=== PATIENT | male | born 1995 | race Hispanic/Latino ===

== ENCOUNTER 2018-04-01 18:15 | Emergency (ER) | payer BC ==
[2018-04-01 19:45] VITALS: RESP 18
--- NOTE | 2018-04-01 21:02 | ED PDOC ---
HPI: General Adult Time Seen by Provider: 04/01/18 20:29 Chief Complaint (Nursing): Anxiety Chief Complaint (Provider): Chest pain, anxiety History Per: Patient History/Exam Limitations: no limitations Onset/Duration Of Symptoms: Hrs Have you had recent travel within the past 21 days to any of the following countries: [place], [place], [employer] or [place]?: No Current Symptoms Are (Timing): Better Additional History Per: Patient Additional Complaint(s): 22yo male with history of anxiety, ADD, presents to ER for evaluation of chest tightness and left arm pain, present since 4PM today. Patient states recently he has been stressed and anxious; states he was studying for an exam tomorrow while the symptoms started. Patient reports he used to be on SSRI's in the past but now only takes his ADD medication. He reports he has not had an anxiety attack "in years." Patient states the chest tightness has resolved but he still has arm discomfort, prompting his ER visit. He denies any trauma, injury, fever , chills, shortness of breath, and offers no other medical complaints. Also denies SI, HI, history of suicide attempts or current plan. PMD: None Past Medical History Reviewed: Historical Data, Nursing Documentation, Vital Signs Vital Signs: Last Vital Signs Temp 98 F 04/01/18 22:47 Pulse 56 L 04/01/18 22:47 Resp 18 04/01/18 22:47 BP 137/74 04/01/18 22:47 Pulse Ox 99 04/01/18 22:47 - Medical History PMH: Anxiety Other PMH: ADD - Surgical History Surgical History: No Surg Hx - Family History Family History: States: No Known Family Hx - Living Arrangements Living Arrangements: With Friends/Others ([employer]) - Social History Current smoker - smoking cessation education provided: No Alcohol: Occasional Drugs: Cannabis (occasional) - Allergies Allergies/Adverse Reactions: Allergies Allergy/AdvReac Type Severity Reaction Status Date / Time No Known Allergies Allergy Verified 04/01/18 19:45 Review of Systems ROS Statement: Except As Marked, All Systems Reviewed And Found Negative Constitutional: Negative for: Fever, Chills Cardiovascular: Positive for: Chest Pain Respiratory: Negative for: Shortness of Breath Musculoskeletal: Positive for: Arm Pain (left) Neurological: Negative for: Weakness, Numbness Physical Exam - Reviewed Nursing Documentation Reviewed: Yes Vital Signs Reviewed: Yes - Physical Exam Comments: GENERAL APPEARANCE: Patient is awake, alert, oriented x 3, in no acute distress. Resting comfortably, nontoxic appearing. SKIN: Warm, dry; (-) cyanosis. EYES: (-) conjunctival pallor. ENMT: Mucous membranes moist. Airway patent, (-) stridor. NECK: Supple, FROM (-) tenderness, (-) stiffness, (-) lymphadenopathy CHEST AND RESPIRATORY: (-) rash, (-) chest wall tenderness. Lungs: (-) rales , (-) rhonchi, (-) wheezes, (-) rub; breath sounds equal bilaterally. HEART AND CARDIOVASCULAR: (-) irregularity; (-) murmur, (-) gallop, (-) rub. ABDOMEN AND GI: Soft; (-) distention, (-) tenderness (-) guarding (-) CVA tenderness, (-) palpable pulsatile mass. EXTREMITIES: FROM bilateral upper extremities at all joints with (-) tenderness (-) deformity (-) overlying skin changes; (-) calf tenderness. (+) distal pulses. NEURO AND PSYCH: Mental status as above. Cranial nerves grossly intact; strength symmetric. Gait steady, speech clear. (-) facial asymmetry - ECG ECG: Positive for: Interpreted By Me, Viewed By Me ECG Rhythm: Positive for: Sinus Rhythm. Negative for: ST/T Changes Interpretation Of ECG: QTC 400 Rate: 60 O2 Sat by Pulse Oximetry: 100 (RA) Pulse Ox Interpretation: Normal Medical Decision Making Medical Decision Making: Impression: Chest pain, arm pain, likely secondary to anxiety/panic attack Plan: -- EKG -- Patient declined to speak with crisis team at this time. -- Xanax 0.25mg PO On re-evaluation, patient requesting to go home at this time and reports resolution of symptoms; denies any chest or arm discomfort at this time. On exam , patient remains AAOx3, in no acute distress. On exam, neck is supple, lungs CTA, cardiac RRR, abdomen is soft and non-tender, neuro exam shows no focal findings. VSS, stable for discharge. Diagnostic results d/w the patient in great detail. Dx of panic attack, anxiety d/w the patient. Based on history, exam and diagnostic results plan will be for discharge and outpatient follow up. Advised to follow up with primary care physician in 1-2 days without fail. Return to the emergency room at any time for any new or worsening symptoms. Patient states he fully agrees with and understands discharge instructions. States that he agrees with the plan and disposition. Verbalized and repeated discharge instructions and plan. I have given the patient opportunity to ask any additional questions. Scribe Attestation: Documented by Deann Justice acting as a scribe for LUZ Oneil. Provider Attestation: All medical record entries made by the Scribe were at my direction and personally dictated by me. I have reviewed the chart and agree that the record accurately reflects my personal performance of the history, physical exam, medical decision making, and the department course for this patient. I have also personally directed, reviewed, and agree with the discharge instructions and disposition. Disposition - Clinical Impression Clinical Impression: Panic attack, Anxiety, Chest discomfort - Patient ED Disposition Is Patient to be Admitted: No Counseled Patient/Family Regarding: Studies Performed, Diagnosis, Need For Followup - Disposition Disposition: Routine/Home Disposition Time: 22:21 Condition: STABLE Additional Instructions: FOLLOW UP WITH PMD IN 1-2 DAYS WITHOUT FAIL. RETURN TO ED WITH ANY NEW OR WORSENING SYMPTOMS. Instructions: Panic Disorder, Chest Pain, Chest Pain That Is Not Caused by the Heart (DC), Anxiety, Adult (DC) Forms: [employer] (Sao Tomean), [facility] ED School/Work Excuse Print Language: ICELANDIC - POA Present On Arrival: None
[2018-04-01 22:47] VITALS: BP 137/74; TEMP 98
[2018-04-04 03:41] VITALS: PULSE 60; O2SAT 100
== END 2018-04-01 22:48 | disposition home or self-care (01) ==
LOC: H.ER 18:15
DX: F41.0 Panic disorder [episodic paroxysmal anxiety] (principal)

== ENCOUNTER 2018-05-17 19:41 | Emergency (ER) | payer BC ==
[2018-05-17 19:50] VITALS: O2SAT 100
[2018-05-17] MEDS ORDERED: Sodium Chloride 0.9% 500 ML IV STA (20:40)
--- NOTE | 2018-05-17 20:53 | ED PDOC ---
HPI: Chest Pain <White HallMarcosFulshear - Last Filed: 05/17/18 23:15> <Megha Lea - Last Filed: 05/18/18 15:51> Time Seen by Provider: 05/17/18 20:02 Chief Complaint (Nursing): Chest Pain Additional Complaint(s): 22 yo male with pmhx of anxiety and ADHD presents to ED with complaints of sudden onset of chest pain, palpitation and chest tightness since 7 pm this evening. Pt reports he felt he was having an anxiety attack and took xanax 0.25 mg but states chest tightness was not improving after he took xanax which prompted him to be evaluated in the ED. States he has been stressed out due to summer class he is taking. Reports sweating on palms and generalized tingling sensation of arms and legs. Denies dyspnea, headache, dizziness, nausea, vomiting or focal weakness. Denies fever, chills, cough, GI or complaints. Last seen his therapist about a week ago. Denies SI/HI/AH/VH. PMD: Dr. Suze Srinivasan (Sultan Juliano) Supervising Attending Note <Sultan Juliano - Last Filed: 05/17/18 23:15> - Supervising Attending Note The Documented history was done by the: Physician Conference Manager, Attending Physician The documented physical exam was done by the: Physician Conference Manager, Attending Physician - Attestation: I have personally seen and examined this patient.: Yes I have fully participated in the care of the patient.: Yes I have reviewed all pertinent clinical information: Yes <Megha Lea - Last Filed: 05/18/18 15:51> - Notes: Notes:: Chest pain resolved, associated with anxiety. Normal heart and lungs sounds. Second visit for same. Questionable peaked T waves on EKG. Labs and repeat ekg normal. Stable for dc. (Megha Lea) Past Medical History - Medical History PMH: Anxiety - Family History Family History: States: No Known Family Hx <Sultan Juliano - Last Filed: 05/17/18 23:15> <Megha Lea - Last Filed: 05/18/18 15:51> Vital Signs: Last Vital Signs Temp 98.2 F 05/17/18 22:53 Pulse 73 06/24/18 22:53 Resp 18 05/17/18 22:53 BP 124/74 05/17/18 22:53 Pulse Ox 100 05/17/18 23:15 - Allergies Allergies/Adverse Reactions: Allergies Allergy/AdvReac Type Severity Reaction Status Date / Time No Known Allergies Allergy Verified 05/17/18 19:49 Review of Systems Constitutional: Negative for: Fever, Chills ENT: Negative for: Ear Pain, Nose Congestion Cardiovascular: Positive for: Chest Pain, Palpitations. Negative for: Light Headedness Respiratory: Negative for: Cough, Shortness of Breath, Wheezing Gastrointestinal: Negative for: Nausea, Vomiting, Abdominal Pain Genitourinary Male: Negative for: Dysuria, Hematuria Musculoskeletal: Negative for: Neck Pain, Shoulder Pain Skin: Negative for: Rash Neurological: Negative for: Weakness, Headache, Dizziness Psych: Positive for: Anxiety. Negative for: Suicidal ideation <Sultan Juliano - Last Filed: 05/17/18 23:15> Physical Exam - Physical Exam Appears: Positive for: Non-toxic, No Acute Distress (but looks anxious) Head Exam: Positive for: NORMAL INSPECTION, NORMOCEPHALIC Skin: Positive for: Warm. Negative for: Rash Eye Exam: Positive for: Normal appearance, EOMI ENT: Positive for: Normal ENT Inspection Neck: Positive for: Supple Cardiovascular/Chest: Positive for: Regular Rate, Rhythm Respiratory: Positive for: Normal Breath Sounds. Negative for: Rales, Rhonchi, Wheezing, Respiratory Distress Gastrointestinal/Abdominal: Positive for: Bowel Sounds, Soft. Negative for: Tenderness, Distended Extremity: Positive for: Normal ROM. Negative for: Pedal Edema, Swelling Neurologic/Psych: Positive for: Alert, edging supervisor II-XII, Oriented. Negative for: Motor/Sensory Deficits <Sultan Juliano Last Filed: 05/17/18 23:15> - Laboratory Results Result Diagrams: 05/17/18 20:57 05/17/18 20:57 - ECG ECG: Positive for: Interpreted By Me, Viewed By Me ECG Rhythm: Positive for: Normal QRS. Negative for: ST/T Changes O2 Sat by Pulse Oximetry: 100 - Radiology X-Ray: Interpreted by Me, Viewed By Me X-Ray Interpretation: No Acute Disease - Progress Condition: Re-examined, Improved <Sultan Juliano - Last Filed: 05/17/18 23:15> - Laboratory Results Result Diagrams: 05/17/18 20:57 05/17/18 20:57 <Megha Lea - Last Filed: 05/18/18 15:51> - Progress ED Course And Treament: Assessment: 22 yo male with pmhx of anxiety and ADHD presents to ED for chest pain, palpitation and chest tightness since 7 pm this evening. Plan: EKG CXR CBC CMP Magnesium Phosphate Thyroid panel urine toxicology NS 500 cc bolus Re-evaluate Pt's CBC, CMP, magnesium, phosphate, thyroid panel and urine toxicology all were WNL. Repeat EKG no changes from prior EKG. CXR showed no active disease. Pt reports his chest pain, chest pressure and palpitation has resolved. Patient is stable to discharge home. Advised to f/u with PMD in 48 hours. Advised to return to ED for worsening symptoms. Case d/w with Dr Lea (Sultan Juliano) Disposition - Disposition Disposition Time: 23:05 <Sultan Juliano - Last Filed: 05/17/18 23:15> <Megha Lea - Last Filed: 05/18/18 15:51> - Clinical Impression Clinical Impression: Chest pain, Anxiety - Disposition Referrals: [email or web address] [Outside] (FOLLOW UP WITH YOUR DOCTOR OR [facility] IN 48 HOURS FOR REEVALUATION) Condition: FAIR Instructions: Anxiety, Adult (DC), Chest Pain (DC) Forms: [employer] (Amharic)
[2018-05-17 21:04] LABS: BASO # 0.1 K/uL (0.0-0.2); BASO % 0.6 % (0.0-2.0); EOS # 0.2 K/uL (0.0-0.7); EOS % 2.4 % (0.0-4.0); HEMOGLOBIN 14.7 g/dL (12.0-18.0); LYMPH # 2.1 K/uL (1.0-4.3); LYMPH % 25.2 % (20.0-40.0); MEAN CELL VOLUME 83.1 fl (80.0-94.0); MEAN CORPUSCULAR HEMOGLOBIN 28.7 pg (27.0-31.0); MEAN CORPUSCULAR HGB CONC 34.6 g/dL (33.0-37.0); MEAN PLATELET VOLUME 7.8 fl (7.2-11.7); MONO # 0.7 K/uL (0.0-0.8); NEUT # 5.3 K/uL (1.8-7.0); NEUT % 63.8 % (50.0-75.0); NRBC % 0.2 % (0.0-0.0); RBC 5.13 Mil/uL (4.40-5.90); RED CELL DISTRIBUTION WIDTH 13.3 % (11.5-14.5); WHITE BLOOD COUNT 8.3 K/uL (4.8-10.8)
[2018-05-17 21:11] LABS: ALB/GLOB RATIO 1.6 (1.0-2.1); ALBUMIN 4.6 g/dL (3.5-5.0); ALT/SGPT 42 U/L (21-72); AST/SGOT 39 U/L (17-59); BLOOD UREA NITROGEN 12 mg/dl (9-20); CALCIUM 9.5 mg/dL (8.4-10.2); GFR AFRICAN-AMERICAN > 60; GFR NON-AFRICAN AMERICAN > 60
[2018-05-17 21:41] LABS: T3 1.31 nmol/L (1.49-2.60)
[2018-05-17 22:13] LABS: BARBITURATES, UR NEGATIVE (NEGATIVE); BENZODIAZEPINES, UR NEGATIVE (NEGATIVE); OPIATES, UR NEGATIVE (NEGATIVE); PHENCYCLIDINE, UR NEGATIVE (NEGATIVE)
[2018-05-17 23:14] VITALS: BP 124/74; PULSE 73; RESP 18; TEMP 98.2
--- NOTE | 2018-05-18 11:07 | CARD ---
APPROVED REPORT EKG Measurement Heart [id number] <Conclusion> Normal sinus rhythm Rightward axis Incomplete right bundle branch block Borderline ECG
--- NOTE | 2018-05-18 11:20 | RAD ---
HISTORY: chest pain COMPARISON: No prior. TECHNIQUE: Chest PA and lateral FINDINGS: LUNGS: No active pulmonary disease. PLEURA: No significant pleural effusion identified. No pneumothorax apparent. CARDIOVASCULAR: Normal. OSSEOUS STRUCTURES: No significant abnormalities. VISUALIZED UPPER ABDOMEN: Normal. OTHER FINDINGS: None. IMPRESSION: No acute cardiopulmonary disease appreciated.
== END 2018-05-17 22:53 | disposition home or self-care (01) ==
LOC: H.ER 19:41
DX: R07.89 Other chest pain (principal); F41.9 Anxiety disorder, unspecified; F90.9 Attention-deficit hyperactivity disorder, unspecified type
CPT/HCPCS: 71046; 80053; 83735; 84100; 84439; 84443; 84480; 84484; 85025; 93005; 99284; G0480; J7030

== ENCOUNTER 2018-06-10 19:39 | Emergency (ER) | payer BC ==
[2018-06-10 19:59] VITALS: BP 127/78; PULSE 80; RESP 16; TEMP 98.2; O2SAT 99
[2018-06-10] MEDS ORDERED: Dexamethasone 4 mg/1 ml IM STA (20:14)
--- NOTE | 2018-06-10 20:16 | ED PDOC ---
HPI: General Adult Time Seen by Provider: 06/10/18 20:02 Chief Complaint (Nursing): ENT Problem Chief Complaint (Provider): Tonsillitis History Per: Patient History/Exam Limitations: no limitations Onset/Duration Of Symptoms: Days (x5) Current Symptoms Are (Timing): Still Present Additional Complaint(s): 22 year old male presents with sore throat for 1 week. Patient was seen last week at urgent care and was started on keflex which he took for 2 days. He then saw his PMD who switched him to cefnidir which he also took for 2 days but saw no improvement to symptoms. Patient was then seen today at another urgent care and was started on augmentin. He was told today by the urgent care provider that if symptoms did not get better after first dose of augmentin, that he should come to the ED. Patient is tolerating liquids and solids, denies any vomiting. Last week at onset of symptoms patient was tested for strep and mono and both were negative. Patient states rapid strep at urgent care today was negative and culture was sent. PMD: not in area Past Medical History Reviewed: Historical Data, Nursing Documentation, Vital Signs Vital Signs: Last Vital Signs Temp 98.2 F 06/10/18 19:56 Pulse 80 06/10/18 19:56 Resp 16 06/10/18 19:56 BP 127/78 06/10/18 19:56 Pulse Ox 99 06/10/18 20:25 - Medical History PMH: Anxiety, Asthma - Surgical History Surgical History: No Surg Hx - Family History Family History: States: No Known Family Hx - Living Arrangements Living Arrangements: With Family - Social History Current smoker - smoking cessation education provided: No Alcohol: None Drugs: Denies - Immunization History Hx Tetanus Toxoid Vaccination: Yes - Home Medications Home Medications: Ambulatory Orders Medication Instructions Recorded Clindamycin [Cleocin] 300 mg PO TID #21 cap 06/10/18 Prednisone 50 mg PO DAILY #5 tablet 06/10/18 - Allergies Allergies/Adverse Reactions: Allergies Allergy/AdvReac Type Severity Reaction Status Date / Time No Known Allergies Allergy Verified 06/10/18 19:55 Review of Systems ROS Statement: Except As Marked, All Systems Reviewed And Found Negative Constitutional: Positive for: Fever (tactile, not measured) ENT: Positive for: Throat Pain, Throat Swelling Physical Exam - Reviewed Nursing Documentation Reviewed: Yes Vital Signs Reviewed: Yes - Physical Exam Appears: Positive for: Well, Non-toxic, No Acute Distress Head Exam: Positive for: ATRAUMATIC, NORMAL INSPECTION, NORMOCEPHALIC Skin: Positive for: Normal Color. Negative for: Rash Eye Exam: Positive for: Normal appearance ENT: Positive for: Pharyngeal Erythema (bilateral), Tonsillar Exudate (bilateral ), Tonsillar Swelling (bilateral), Other (no visualized SUPERINTENDENT OVERHEAD DISTRIBUTION) Neck: Positive for: Normal, Painless ROM, Supple Cardiovascular/Chest: Positive for: Regular Rate, Rhythm Respiratory: Positive for: Normal Breath Sounds. Negative for: Respiratory Distress Extremity: Positive for: Normal ROM Lymphatic: Positive for: Adenopathy (mild bilateral anterior cervical LAD) Neurologic/Psych: Positive for: Alert, Oriented - ECG O2 Sat by Pulse Oximetry: 99 (RA) Pulse Ox Interpretation: Normal Medical Decision Making Medical Decision Making: Time: 20:14 Initial Impression: 22 year old male with tonsillitis Initial Plan: --Clindamycin 300 mg PO --Decadron 8 mg IM --Motrin 600 mg PO Patient was instructed to stop all current meds and was given rx clindamycin and prednisone. He was referred to ENT for follow up and was also advised to follow up on throat culture results from urgent care that were sent today. Scribe Attestation: Documented by Carolyn Soriano, acting as a scribe for Megha Glasgow PA-C. Provider Scribe Attestation: All medical record entries made by the Scribe were at my direction and personally dictated by me. I have reviewed the chart and agree that the record accurately reflects my personal performance of the history, physical exam, medical decision making, and the department course for this patient. I have also personally directed, reviewed, and agree with the discharge instructions and disposition. Disposition - Clinical Impression Clinical Impression: Tonsillitis Counseled Patient/Family Regarding: Diagnosis, Need For Followup, Rx Given - Disposition Referrals: Luis Enrique Denise MD [Staff Provider] - Disposition: Routine/Home Disposition Time: 20:32 Condition: STABLE Additional Instructions: Stop all other meds and taken new rx meds as directed. Follow up with urgent care center that you went today to obtain culture results in 2-3 days. Follow up with ear, nose and throat specialist for any persistent symptoms. Prescriptions: Clindamycin [Cleocin] 300 mg PO TID #21 cap Prednisone 50 mg PO DAILY #5 tablet Instructions: Sore Throat, Adult (DC) Forms: [facility] (Lao)
== END 2018-06-10 20:45 | disposition home or self-care (01) ==
LOC: H.ER 19:39
DX: J03.90 Acute tonsillitis, unspecified (principal); F41.9 Anxiety disorder, unspecified; J45.909 Unspecified asthma, uncomplicated
CPT/HCPCS: 96372; 99281; J1100